=== PATIENT | female | born 1965 | race Caucasian/White ===

== ENCOUNTER 2016-08-19 19:46 | Inpatient (IN) | payer BC ==
[~2016-08-19] VITALS: Ht 152.4 cm; Wt 58.1 kg
--- NOTE | ~2016-08-19 | EKG ---
[place], [place] ELECTROCARDIOGRAM REPORT NAME: DREW HINKLE UNIT #: [id number] ROOM: 532 DOCTOR: SHAN STUART MD BIRTHDATE: [birth year] DOS: 08/19/2016 TIME: 2115. FINDINGS: Normal sinus rhythm at rate of 74. Normal EKG. SHAN STUART MD CM:EKGRPT:ELECTROCARDIOGRAM REPORT [id number] SHAN STUART MD
--- NOTE | ~2016-08-19 | EKG ---
[place], [place] ELECTROCARDIOGRAM REPORT NAME: DREW HINKLE UNIT #: [id number] ROOM: 532 DOCTOR: SHAN STUART MD BIRTHDATE: [birth year] DOS: 08/19/2016 TIME: 1955. FINDINGS: Normal sinus rhythm at rate of 75. Normal electrocardiogram. SHAN STUART MD CM:EKGRPT:ELECTROCARDIOGRAM REPORT [id number] SHAN STUART MD
--- NOTE | ~2016-08-19 | ST ---
[place], [place] EXERCISE STRESS TEST REPORT NAME: DREW HINKLE UNIT #: [id number] ROOM: 532 DOCTOR: SHAN STUART MD BIRTHDATE: [birth year] DOS: 08/20/2016 EXERCISE STRESS MYOCARDIAL PERFUSION STUDY INDICATIONS: Chest pain. PROCEDURE: The patient walked on a full Mando protocol stress test for 7 minutes 30 seconds and achieved a maximum heart rate of 151 which represented 89% of her maximum predicted heart rate at a workload of 10.0 METs. Her resting heart rate of 64 darien to 151. Her resting blood pressure of 120/78 darien to 136/80. She stated that she had no chest pain during the exercise test. Her resting electrocardiogram was normal. With exercise, she did develop 1 mm of J-point depression in the inferior lateral leads with rapidly upsloping ST segments. One minute prior to completion of exercise protocol, the patient was given radionuclide IV. IMPRESSION: 1. Good exercise capacity without chest pain. The patient did have equivocal electrocardiographic changes with exercise. 2. Jean treadmill score 2.5 consistent with a moderate risk for major adverse cardiac events. 3. Radionuclide injected. Please see the separate imaging report for further details of the patient's stress test results. SHAN STUART MD CM:STRESS:EXERCISE STRESS TEST REPORT [id number] SHAN STUART MD
[~2016-08-19 19:46] MED LIST: MAXALT10 MG PO; NKHM PO; PERCOCET 325 MG1 TA2 PO
[2016-08-19 19:57] VITALS: BP 157/96
[2016-08-19 20:20] LABS: BASO % 0.3 % (0.0-1.0); EOS # 0.1 10*3/uL (0.0-0.4); EOS % 2.2 % (1.0-4.0); HEMATOCRIT 38.2 % (37.0-47.0); HEMOGLOBIN 12.7 g/dl (12.0-16.0); LYMPH # 2.1 10*3/uL (1.3-4.4); LYMPH % 35.9 % (27.0-41.0); MEAN CELL VOLUME 83.2 fl (81.0-99.0); MEAN CORPUSCULAR HGB 27.7 pg (27.0-31.0); MEAN CORPUSCULAR HGB CONC 33.2 g/dl (33.0-37.0); MEAN PLATELET VOLUME 10.9 fl (9.6-12.3); MONO # 0.6 10*3/uL (0.1-1.0); MONO % 9.4 % (3.0-9.0); NEUT # 3.1 10*3/uL (2.3-7.9); PLATELET COUNT AUTOMATED 252 10*3/uL (130-400); RED BLOOD COUNT 4.59 10*6/uL (4.10-5.10); RED CELL DISTRI WIDTH 21.4 % (0-14.5)
[2016-08-19 20:29] LABS: PROTHROMBIN TIME 10.7 SECONDS (9.0-12.4)
[2016-08-19 20:37] LABS: ALBUMIN 3.7 gm/dl (3.1-4.5); ALKALINE PHOSPHATASE 56 U/L (45-117); BILIRUBIN, TOTAL 0.3 mg/dl (0.2-1.0); BUN 11 mg/dl (7-24); CARBON DIOXIDE 27 mmol/L (21-32); CHLORIDE 106 mmol/L (98-107); EST GLOM FILT AFRICAN AMERICAN > 60 ml/min; GLUCOSE 90 mg/dL (65-99); MAGNESIUM 2.3 mg/dL (1.5-2.1); POTASSIUM 3.6 mmol/L (3.5-5.1); SGOT/AST 14 IU/L (3-35); SGPT/ALT 18 U/L (12-78); SODIUM 139 mmol/L (136-145); TOTAL PROTEIN 7.5 gm/dL (6.4-8.2)
[2016-08-19 20:38] LABS: TROPONIN I < 0.015 ng/ml (<0.045)
[2016-08-20 00:19] VITALS: BP 111/71
[2016-08-20 01:00] VITALS: BP 130/60; BP 136/60; BP 137/61
[2016-08-20 06:25] LABS: BASO % 0.4 % (0.0-1.0); EOS # 0.1 10*3/uL (0.0-0.4); EOS % 2.7 % (1.0-4.0); HEMOGLOBIN 12.7 g/dl (12.0-16.0); LYMPH # 1.5 10*3/uL (1.3-4.4); LYMPH % 30.9 % (27.0-41.0); MEAN CELL VOLUME 83.9 fl (81.0-99.0); MEAN CORPUSCULAR HGB 27.3 pg (27.0-31.0); MEAN CORPUSCULAR HGB CONC 32.6 g/dl (33.0-37.0); MEAN PLATELET VOLUME 11.1 fl (9.6-12.3); MONO # 0.5 10*3/uL (0.1-1.0); MONO % 10.8 % (3.0-9.0); NEUT # 2.7 10*3/uL (2.3-7.9); PLATELET COUNT AUTOMATED 243 10*3/uL (130-400); RED BLOOD COUNT 4.65 10*6/uL (4.10-5.10); RED CELL DISTRI WIDTH 21.6 % (0-14.5); WHITE BLOOD COUNT 4.8 10*3/uL (4.8-10.8)
[2016-08-20 06:28] LABS: CKMB 0.7 ng/ml (0.5-3.6); CPK 80 U/L (26-192)
[2016-08-20 06:34] LABS: TROPONIN I < 0.015 ng/ml (<0.045)
[2016-08-20 06:52] LABS: ALBUMIN 3.6 gm/dl (3.1-4.5); ALKALINE PHOSPHATASE 56 U/L (45-117); BILIRUBIN, TOTAL 0.5 mg/dl (0.2-1.0); BUN 10 mg/dl (7-24); CARBON DIOXIDE 26 mmol/L (21-32); CHLORIDE 107 mmol/L (98-107); CHOLESTEROL 177 mg/dL (<200); EST GLOM FILT AFRICAN AMERICAN > 60 ml/min; FREE T4 0.94 ng/dl (0.76-1.46); GLUCOSE 87 mg/dL (65-99); HDL CHOLESTEROL 51 mg/dl (40-60); LDL CHOLESTEROL 104 mg/dL (9-159); MAGNESIUM 2.4 mg/dL (1.5-2.1); PHOSPHOROUS 3.3 mg/dL (2.5-4.9); POTASSIUM 3.8 mmol/L (3.5-5.1); SGOT/AST 15 IU/L (3-35); SGPT/ALT 17 U/L (12-78); SODIUM 144 mmol/L (136-145); TOTAL PROTEIN 7.2 gm/dL (6.4-8.2); TRIGLYCERIDES 111 mg/dl (<150); VLDL CHOLESTEROL 22 mg/dL (6-40)
[2016-08-20 06:53] LABS: INTERNATIONAL NORM RATIO 1.1 (2.0-3.5); PROTHROMBIN TIME 11.2 SECONDS (9.0-12.4)
[2016-08-20 07:19] LABS: HEMOGLOBIN A1c 5.7 % (4.8-5.6)
[2016-08-20 08:00] VITALS: BP 110/72
[2016-08-20 09:15] LABS: FOLIC ACID 14.76 ng/mL (>5.38); VITAMIN D, 25-HYDROXY 40.7 ng/mL (30-100)
[2016-08-20 12:00] VITALS: BP 106/70
[2016-08-20 16:00] VITALS: BP 110/62
== END 2016-08-20 18:10 | disposition home or self-care (01) | DRG 313 ==
LOC: ED 19:46 → EDHOLD 23:34 → 5E 08-20 00:06
PROVIDERS: Family Medicine; Student in an Organized Health Care Education/Training Program
PROC: 4A02XM4 Measurement of Cardiac Total Activity, External Approach (ICD-10-PCS; principal; 2016-08-20)
DX: R07.9 Chest pain, unspecified (principal); E83.41 Hypermagnesemia; I10 Essential (primary) hypertension; G43.909 Migraine, unspecified, not intractable, without status migrainosus; E74.39 Other disorders of intestinal carbohydrate absorption; Z90.710 Acquired absence of both cervix and uterus; Z83.6 Family history of other diseases of the respiratory system; Z79.899 Other long term (current) drug therapy

== ENCOUNTER 2017-08-22 17:25 | Emergency (ER) | payer BC ==
[~2017-08-22] VITALS: Ht 152.4 cm; Wt 56.7 kg
[2017-08-22 18:10] LABS: BASO % 0.6 % (0.0-1.0); EOS # 0.1 10*3/uL (0.0-0.4); EOS % 0.8 % (1.0-4.0); HEMATOCRIT 43.7 % (37.0-47.0); HEMOGLOBIN 14.5 g/dl (12.0-16.0); LYMPH # 1.9 10*3/uL (1.3-4.4); LYMPH % 25.8 % (27.0-41.0); MEAN CELL VOLUME 92.2 fl (81.0-99.0); MEAN CORPUSCULAR HGB 30.6 pg (27.0-31.0); MEAN CORPUSCULAR HGB CONC 33.2 g/dl (33.0-37.0); MEAN PLATELET VOLUME 11.2 fl (9.6-12.3); MONO # 0.8 10*3/uL (0.1-1.0); MONO % 10.6 % (3.0-9.0); NEUT # 4.4 10*3/uL (2.3-7.9); NEUT % 61.9 % (47.0-73.0); PLATELET COUNT AUTOMATED 270 10*3/uL (130-400); RED BLOOD COUNT 4.74 10*6/uL (4.10-5.10); RED CELL DISTRI WIDTH 12.2 % (0-14.5); WHITE BLOOD COUNT 7.2 10*3/uL (4.8-10.8)
[2017-08-22 18:38] LABS: ALBUMIN 4.1 gm/dl (3.1-4.5); ALKALINE PHOSPHATASE 58 U/L (45-117); BUN 10 mg/dl (7-24); CHLORIDE 101 mmol/L (98-107); CREATININE 0.86 mg/dL (0.55-1.02); LIPASE 194 U/L (73-393); POTASSIUM 3.6 mmol/L (3.5-5.1); SGOT/AST 15 IU/L (3-35); SGPT/ALT 22 U/L (12-78); SODIUM 137 mmol/L (136-145)
[2017-08-22 19:13] LABS: BILIRUBIN NEGATIVE (NEGATIVE); BLOOD NEGATIVE (NEGATIVE); CLARITY CLEAR (CLEAR); COLOR YELLOW (YELLOW); GLUCOSE NEGATIVE (NEGATIVE); KETONE NEGATIVE (NEGATIVE); LEUKO ESTERASE NEGATIVE (NEGATIVE); NITRITE NEGATIVE (NEGATIVE); SPECIFIC GRAVITY 1.015 (1.005-1.030); UROBILINOGEN 0.2 E.U./dl (0.2-1.0)
[2017-08-22 19:23] LABS: BACTERIA 1+; RBC 0-2 rbc/hpf (0-2); WBC 0-2 wbc/hpf (0-5)
== END 2017-08-22 19:54 | disposition home or self-care (01) ==
LOC: ED 17:25
PROVIDERS: Physician Assistant
DX: R10.31 Right lower quadrant pain (principal); Z90.710 Acquired absence of both cervix and uterus; Z90.89 Acquired absence of other organs; Z79.899 Other long term (current) drug therapy

== ENCOUNTER → 2017-08-26 | Outpatient (CLI) | payer BC | END | disposition home or self-care (01) | LOC: US 02:40 | DX: R10.31 Right lower quadrant pain (principal); Z90.710 Acquired absence of both cervix and uterus ==

== ENCOUNTER → 2017-09-01 | Outpatient (CLI) | payer BC ==
[2017-09-01 13:31] LABS: BASO % 0.4 % (0.0-1.0); EOS # 0.1 10*3/uL (0.0-0.4); EOS % 1.5 % (1.0-4.0); HEMATOCRIT 42.4 % (37.0-47.0); LYMPH # 1.3 10*3/uL (1.3-4.4); LYMPH % 25.1 % (27.0-41.0); MEAN CELL VOLUME 92.8 fl (81.0-99.0); MEAN CORPUSCULAR HGB 30.6 pg (27.0-31.0); MEAN PLATELET VOLUME 11.5 fl (9.6-12.3); MONO # 0.6 10*3/uL (0.1-1.0); MONO % 11.4 % (3.0-9.0); NEUT # 3.2 10*3/uL (2.3-7.9); NEUT % 61.4 % (47.0-73.0); PLATELET COUNT AUTOMATED 204 10*3/uL (130-400); RED BLOOD COUNT 4.57 10*6/uL (4.10-5.10); RED CELL DISTRI WIDTH 12.5 % (0-14.5); WHITE BLOOD COUNT 5.3 10*3/uL (4.8-10.8)
[2017-09-01 13:57] LABS: ALBUMIN 3.9 gm/dl (3.1-4.5); BUN 11 mg/dl (7-24); CHLORIDE 107 mmol/L (98-107); CHOLESTEROL 158 mg/dL (<200); CREATININE 0.88 mg/dL (0.55-1.02); POTASSIUM 3.8 mmol/L (3.5-5.1); SGOT/AST 18 IU/L (3-35); SGPT/ALT 17 U/L (12-78); SODIUM 141 mmol/L (136-145); TOTAL PROTEIN 7.8 gm/dL (6.4-8.2)
[2017-09-01 14:08] LABS: ALKALINE PHOSPHATASE 54 U/L (45-117); HDL CHOLESTEROL 42 mg/dl (40-60); LDL CHOLESTEROL 99 mg/dL (9-159); TRIGLYCERIDES 87 mg/dl (<150); VLDL CHOLESTEROL 17 mg/dL (6-40)
== END | disposition home or self-care (01) ==
LOC: LAB 13:04
PROVIDERS: Internal Medicine
DX: R10.84 Generalized abdominal pain (principal); E66.3 Overweight

== ENCOUNTER → 2017-09-12 | Outpatient (CLI) | payer BC | END | disposition home or self-care (01) | LOC: US 06:51 | DX: R10.11 Right upper quadrant pain (principal) ==

== ENCOUNTER → 2017-09-14 | Outpatient (CLI) | payer BC | END | disposition home or self-care (01) | LOC: NM 01:21 | DX: R10.11 Right upper quadrant pain (principal) ==

== ENCOUNTER → 2017-09-22 | Day surgery (SDC) | payer BC ==
[~2017-09-22] VITALS: Ht 152.4 cm; Wt 56.7 kg
--- NOTE | ~2017-09-22 | PROC NOTE ---
[place], [place] PROCEDURE NOTE NAME: DREW HINKEL UNIT #: [id number] ROOM: DOCTOR: YANNICK MORENO MD BIRTHDATE: [birth year] DOS: 09/22/2017 PREOPERATIVE DIAGNOSIS: Screening examination. POSTOPERATIVE DIAGNOSIS: Screening examination. PROCEDURE: Colonoscopy. ENDOSCOPIST: Yannick Moreno MD DIE CASTER: MARCELA. ANESTHESIA: MAC. INDICATIONS: This is a 52-year-old lady here for a screening examination. The procedure and its complications were explained to the patient in detail preoperatively. Complications that were discussed included but were not limited to, bleeding, colon perforation and missed lesions. She agreed to proceed. DESCRIPTION OF PROCEDURE: After identifying the patient, the patient was brought to the endoscopy suite and placed in the left lateral position. After IV sedation was administered, a timeout procedure was called and a digital rectal exam was performed. This was within normal limits. An adult colonoscope was now introduced into the anal canal and advanced sequentially into the rectum, sigmoid colon, descending colon, transverse colon and ascending colon up to the cecum. The prep was found to be optimal. Upon reaching the cecum, the scope was withdrawn. Total withdrawal time was approximately 7 minutes. There were no obvious lesions seen in the entirety of the colon. These findings were confirmed after the entire colon was visualized. After the scope was removed, the patient was taken to the recovery room in stable fashion. There were no complications. Dr. Yannick Moreno, the attending endoscopist, was present throughout the operating case. Based on these findings, the patient is recommended to have another colonoscopy in 10 years or sooner should she develop any new symptoms. These findings were discussed with the patient's fiance in the recovery room. Yannick Moreno MD CM:PROCNOTE:PROCEDURE NOTE [id number] YANNICK MORENO MD
[2017-09-22 07:55] VITALS: BP 114/70
[2017-09-22 08:29] VITALS: BP 85/46
[2017-09-22 08:45] VITALS: BP 98/59
[2017-09-22 08:57] VITALS: BP 102/65
== END | disposition home or self-care (01) ==
LOC: SDC 09-20 14:00
DX: Z12.11 Encounter for screening for malignant neoplasm of colon (principal); K21.9 Gastro-esophageal reflux disease without esophagitis; R10.13 Epigastric pain; Z90.710 Acquired absence of both cervix and uterus; G43.909 Migraine, unspecified, not intractable, without status migrainosus; Z80.9 Family history of malignant neoplasm, unspecified

== ENCOUNTER → 2017-10-13 | Outpatient (CLI) | payer BC | END | disposition home or self-care (01) | LOC: MAMMO 09:46 | DX: Z12.31 Encounter for screening mammogram for malignant neoplasm of breast (principal) ==

== ENCOUNTER → 2018-03-11 | Outpatient (CLI) | payer BC | END | disposition home or self-care (01) | LOC: US 08:52 | DX: K76.89 Other specified diseases of liver (principal); Z90.710 Acquired absence of both cervix and uterus ==

== ENCOUNTER → 2020-06-27 | Outpatient (CLI) | payer OTHER | END | disposition home or self-care (01) | LOC: CT 13:51 | PROVIDERS: ATTEND Internal Medicine | DX: R42 Dizziness and giddiness (principal); M54.2 Cervicalgia; I10 Essential (primary) hypertension ==